=== PATIENT | female | born 1960 | race Caucasian/White ===

== ENCOUNTER 2025-04-16 14:35 | Emergency (ER) | payer OTHER, MEDICAID ==
[~2025-04-16] VITALS: Ht 162.6 cm; Wt 93.8 kg
[2025-04-16 15:19] LABS: Hematocrit 49.1 % (36.0-46.0); Hemoglobin 16.8 g/dL (12.2-16.2); Mean Corpuscular Hemoglobin 30.8 pg (28.0-32.0); Mean Corpuscular Volume 89.9 fL (80.0-100.0); Nucleated Red Blood Cells % 0.0 %
[2025-04-16 15:37] LABS: Alanine Aminotransferase 22 U/L (7-40); Albumin 4.7 g/dL (3.2-4.8); Alkaline Phosphatase 76 U/L (46-116); Anion Gap 9 (5-15); BUN/Creatinine Ratio 12.5 (10.0-20.0); Blood Urea Nitrogen 11 mg/dL (9-23); Calcium 9.8 mg/dL (8.7-10.4); Carbon Dioxide 27 mmol/L (20-31); Potassium 4.7 mmol/L (3.5-5.1); Total Protein 7.1 g/dL (5.7-8.2)
[2025-04-16 15:38] LABS: Bilirubin, Total 0.6 mg/dL (0.2-1.0)
[2025-04-16 15:41] LABS: Chloride 110 mmol/L (98-107); Glucose 117 mg/dL (74-106); Sodium 146 mmol/L (136-145)
--- NOTE | 2025-04-16 15:43 | DVH ---
EXAM: CT HEAD WITHOUT CONTRAST INDICATION: confusion, gen weak TECHNIQUE: CT images of the head were obtained without administration of IV contrast. CT scans at [facility] facility use dose modulation, iterative reconstruction, and/or weight based dosing when appropriate to reduce radiation dose to as low as reasonably achievable. COMPARISON: None FINDINGS: PARENCHYMA: Area of oval shaped hypoattenuation of indeterminate etiology and underlying mass not exc luded. Oval shape measuring up to 3.5 cm. There is no mass effect, midline shift, or herniation. The re is preservation of the stanley white differentiation. VENTRICLES: No hydrocephalus. EXTRA-AXIAL SPACES: No extra-axial fluid collections. OTHER: The bony structures are intact. Visualized portions of the paranasal sinuses and mastoid air cells are clear. IMPRESSION: 1. Area of oval shaped hypoattenuation of indeterminate etiology and underlying mass not excluded. 2. Consider further evaluation with MRI of the brain with and without contrast.
[2025-04-16 17:18] LABS: Urine Protein, UAD TRACE (Negative)
[2025-04-16 17:25] LABS: Amphetamine Screen, Urine Neg (NEGATIVE); Barbiturate Scree,Urine Neg (NEGATIVE); Benzodiazephine Screen, Urine Neg (NEGATIVE); Cannabinoid Screen, Urine Neg (NEGATIVE); Cocaine Screen, Urine Neg (NEGATIVE); Opiate Scree,Urine Neg (NEGATIVE); Phencyclidine Screen, Urine Neg (NEGATIVE)
--- NOTE | 2025-04-16 18:26 | ED.PDOC ---
HPI (NEURO) HPI Comments 64 y.o female with PMHx of malignant melanoma in remission x 11 years, presents to the ED for a chief complaint of confusion and left sided head pain. Patient reports for the past day and a half, woke up feeling abnormal. Patient also mentions vision changes, currently having to focus on a specific thing to focus her vision despite using her prescribed glasses. Additionally, she described a left-sided headache as a pressure sensation that is intermittent. She denies any recent head trauma, nausea, vomiting, focal weakness, fever, chills, dysuria, chest pain or SOB Chief Complaint: Confusion Time Seen by MD: 18:12 Reviewed Notes: Nurses Notes, Medications, Allergies Information Source: Patient Mode of Arrival: Ambulatory Severity: Moderate Headache Severity: Moderate Timing: Days (1.5) Duration: Since onset Headache Quality: Other (pressure ) Headache Location: Parietal Onset: At rest Circumstances: Spontaneous Symptoms: Change of vision History of: Cancer Associated Signs and Symptoms: Headache, Other Past Medical History PAST MEDICAL HISTORY: Cancer (Malignant melanoma) Surgical History: Hysterectomy Surgical History (Other): skin Family History Family History: Reviewed,noncontributory to illness Social History Smoker: Non-Smoker Alcohol: Denies ETOH Use Drugs: Denies Drug Use Lives In: Home Constitutional: denies: chills, diaphoresis, fatigue, fever, malaise, sweats, weakness, others EENTM: denies: blurred vision, double vision, ear bleeding, ear discharge, ear drainage, ear pain, ear ringing, eye pain, eye redness, hearing loss, mouth pain, mouth swelling, nasal discharge, nose bleeding, nose congestion, nose pain, photophobia, tearing, throat pain, throat swelling, voice changes, others Respiratory: denies: cough, hemoptysis, orthopnea, SOB at rest, shortness of breath, SOB with excertion, stridor, wheezing, others Cardiovascular: denies: chest pain, dizzy spells, diaphoresis, Dyspnea on exertion, edema, irregular heart beat, left arm pain, lightheadedness, palpitations, PND, syncope, others Gastrointestinal: denies: abdomen distended, abdominal pain, blood streaked bowels, constipated, diarrhea, dysphagia, difficulty swallowing, hematemesis, melena, nausea, poor appetite, poor fluid intake, rectal bleeding, rectal pain, vomiting, others Genitourinary: denies: abnormal vagina bleeding, burning, dyspareunia, dysuria, flank pain, frequency, hematuria, incontinence, pain, , vagina discharge, urgency, others Neurological: reports: headache, others (confusion ); denies: dizziness, fainting, left sided numbness, left sided weakness, numbness, paresthesia, pre- existing deficit, right sided numbness, right sided weakness, seizure, speech problems, tingling, tremors, weakness Musculoskeletal: reports: others (left arm pain ); denies: back pain, gout, joint pain, joint swelling, muscle pain, muscle stiffness, neck pain Integumetry: denies: bruises, change in color, change in hair/nails, dryness, laceration, lesions, lumps, rash, wounds, others Allergic/Immunocompromised: denies: Difficulty Healing, Frequent Infections, Hives, Itching, others Hematologic/Lymphatic: denies: anemia, blood clots, easy bleeding, easy bruising, swollen glands, others Endocrine: denies: excessive hunger, excessive sweating, excessive thirst, excessive urination, flushing, intolerance to cold, intolerance to heat, unexplained weight gain, unexplained weight loss, others Psychiatric: denies: anxiety, bipolar disorder, depression, hopeless, panic disorder, schizophrenia, sleepless, suicidal, others All Other Systems: Reviewed and Negative Physical Exam General Appearance: No Apparent Distress HEENT: Other (Pupils and face symmetric. Moist mucous membranes.) Neck: Full Range of Motion, Normal Inspection Respiratory: Lungs Clear, No Accessory Muscle Use, No Respiratory Distress, Normal Breath Sounds Cardiovascular: No Edema, No JVD, Regular Rate/Rhythm Breast Exam: Deferred Gastrointestinal: Non Tender, Soft Genitalia: Deferred Pelvic: Deferred Rectal: Deferred Extremities: Normal inspection, Normal range of motion, Non-tender, No pedal edema Neurologic: Alert (Oriented x4), Normal Affect, Normal Mood, Other (Ambulatory without difficulty. No gross focal deficit.) Cerebellar Function: NOT DONE Reflexes: NOT DONE Skin: Dry, Normal Color, Warm Lymphatic: NOT DONE Was a procedure done? Was a procedure done?: No Differential Diagnosis (SZ) Seizure: CVA/TIA General Weakness: Dehydration, Electrolyte imbalance, Hypoglycemia, TIA Headache: Cluster, Migraine, Intracerebral Hemorrhage, Subarachnoid Hemorrhage, Subdural Hemorrhage, Mass Lesion X-Ray, Labs, Meds, VS Vital Signs Date Time Temp Pulse Resp B/P (MAP) Pulse Ox O2 Delivery O2 Flow Rate FiO2 04/16/25 21:02 98.5 98 16 160/76 (104) 96 98.5 04/16/25 18:55 98.9 95 16 174/89 (117) 99 98.9 04/16/25 14:38 98.4 102 16 152/98 94 98.4 Lab Test 04/16/25 16:55 04/16/25 15:02 Range/Units Urine Color Yellow Yellow Urine Clarity Clear Clear Urine pH 5.5 5.0-9.0 Urine Specific [place] 1.027 1.001-1.035 Urine Protein Trace H Negative Urine Ketones 1+ H Negative Urine Blood Trace H Negative /uL Urine Nitrite Negative Negative Urine Bilirubin Negative Negative Urine Urobilinogen Normal Negative mg/dL Urine Leukocyte Esterase 2+ Negative /uL Urine RBC 4 0 - 4 /hpf Urine Microscopic WBC 41 H 0-5 /HPF Urine Squamous Epithelial Cells Few <5 /hpf Urine Bacteria None seen None Seen /hpf Urine Mucus Few None Seen Urine Glucose Normal Normal mg/dL Urine Opiates Screen Neg NEGATIVE Urine Fentanyl Screen Neg NEGATIVE Urine Barbiturates Screen Neg NEGATIVE Urine Phencyclidine Screen Neg NEGATIVE Urine Amphetamines Screen Neg NEGATIVE Urine Benzodiazepines Screen Neg NEGATIVE Urine Cocaine Screen Neg NEGATIVE Urine Cannabinoids Screen Neg NEGATIVE White Blood Count 9.7 4.4-10.8 10^3/uL Red Blood Count 5.46 H 4.0-5.20 10^6/uL Hemoglobin 16.8 H 12.2-16.2 g/dL Hematocrit 49.1 H 36.0-46.0 % Mean Corpuscular Volume 89.9 80.0-100.0 fL Mean Corpuscular Hemoglobin 30.8 28.0-32.0 pg Mean Corpuscular Hemoglobin Concent 34.2 32.0-36.0 g/dL Red Cell Distribution Width 13.5 11.8-14.3 % Platelet Count 320 140-450 10^3/uL Mean Platelet Volume 8.3 6.9-10.8 fL Neutrophils (%) (Auto) 68.1 37.0-80.0 % Lymphocytes (%) (Auto) 26.2 10.0-50.0 % Monocytes (%) (Auto) 4.7 0.0-12.0 % Eosinophils (%) (Auto) 0.2 0.0-7.0 % Basophils (%) (Auto) 0.8 0.0-2.0 % Neutrophils # (Auto) 6.6 1.6-8.6 10 ^3/uL Lymphocytes # (Auto) 2.5 0.4-5.4 10 ^3/uL Monocytes # (Auto) 0.5 0-1.3 10 ^3/uL Eosinophils # (Auto) 0 0-0.8 10 ^3/uL Basophils # (Auto) 0.1 0-0.2 10 ^3/uL Nucleated Red Blood Cells 0.0 % Sodium Level 146 H 136-145 mmol/L Potassium Level 4.7 3.5-5.1 mmol/L Chloride Level 110 H 98-107 mmol/L Carbon Dioxide Level 27 20-31 mmol/L Anion Gap 9 5-15 Blood Urea Nitrogen 11 9-23 mg/dL Creatinine 0.88 0.550-1.02 mg/dL Glomerular Filtration Rate Calc 72 >90 mL/min BUN/Creatinine Ratio 12.5 10.0-20.0 Serum Glucose 117 H 74-106 mg/dL Calcium Level 9.8 8.7-10.4 mg/dL Total Bilirubin 0.6 0.2-1.0 mg/dL Aspartate Amino Transferase (AST) 20 13-40 U/L Alanine Aminotransferase (ALT) 22 7-40 U/L Alkaline Phosphatase 76 46-116 U/L Ammonia < 10 L 11-32 umol/L Total Protein 7.1 5.7-8.2 g/dL Albumin 4.7 3.2-4.8 g/dL Plasma/Serum Blood Alcohol < 3.0 <10 mg/dL PROCEDURE(s): HWOCT - HEAD WITHOUT CONTRAST REASON: confusion, gen weak ORDER NUMBER(s): [id number], ACCESSION NUMBER(s): [id number] EXAM: CT HEAD WITHOUT CONTRAST INDICATION: confusion, gen weak TECHNIQUE: CT images of the head were obtained without administration of IV contrast. CT scans at this facility use dose modulation, iterative reconstruction, and/or weight based dosing when appropriate to reduce radiation dose to as low as reasonably achievable. COMPARISON: None FINDINGS: PARENCHYMA: Area of oval shaped hypoattenuation of indeterminate etiology and underlying mass not excluded. Oval shape measuring up to 3.5 cm. There is no mass effect, midline shift, or herniation. There is preservation of the stanley white differentiation. VENTRICLES: No hydrocephalus. EXTRA-AXIAL SPACES: No extra-axial fluid collections. OTHER: The bony structures are intact. Visualized portions of the paranasal sinuses and mastoid air cells are clear. IMPRESSION: 1. Area of oval shaped hypoattenuation of indeterminate etiology and underlying mass not excluded. 2. Consider further evaluation with MRI of the brain with and without contrast. X-Ray, Labs, Meds, VS Comment 64-year-old female with a history of malignant melanoma in remission complaining of confusion and left-sided pressure-like head discomfort Vitals remarkable for initial heart rate 102, BP 152/98, oxygen saturation 94% on room air Exam unremarkable Rhythm strip independently interpreted by me: Sinus tach, rate 102, no ectopy. CT head remarkable for a left posterior parietal area 3.5 cm oval shaped area of hypoattenuation. Mass can not be excluded. CBC unremarkable, CMP remarkable for sodium 146, chloride 110, ammonia level less than 10, UA abnormal consistent with mild UTI Patient treated with the following in the ED: Tylenol 1 g p.o., Rocephin 1 g IV On re-evaluation, patient is well-appearing. No focal neurologic deficit. Vitals were stable. Case discussed with [facility] hospitalist who declined to accept the patient, stating they do not have Oncology or neurosurgical services, and recommended that I transfer the patient for higher level of care/ neurosurgical services. I briefly discussed the case with our hospitalist, who had the same opinion and recommendation as the [facility] hospitalist. [facility] declined the patient stating they were at capacity. Case discussed with Dr. Turk at [facility] ED, who agreed to accept the patient. I was later advised that the patient's insurance head also initiated transfer to an in-network facility. I discussed the case with Dr. Carty at [facility] who agreed to accept the patient. Time of 1ST Reevaluation: 18:45 Reevaluation 1ST: Unchanged Patient Education/Counseling: Diagnosis, Treatment, Prognosis Family Education/Counseling: No Family Present Departure 1 Departure Time of Disposition: 22:40 Impression: Primary Impression: Brain lesion Additional Impression: UTI (urinary tract infection) Disposition: 02 SHORT TERM HOSPITAL Admit to: Tele Condition: Guarded Critical Care Note Critical Care Time?: No Stability Stability form required: No Heart Score Heart Score: Heart Score Response (Comments) Value History N/A 0 EKG N/A 0 Age N/A 0 Risk Factors N/A 0 Troponin N/A 0 Total 0 I personally scribed for INDIO COYLE MD ([email or web address]) on 04/16/25 at 18:26. Electronically submitted by Fay Calderon ([facility]). INDIO COYLE MD Apr 16, 2025 18:26
[2025-04-17] MEDS: ACETAMINOPHEN 500 MG TAB or CAP PO ONE ×2 (00:43→00:55)
[2025-04-17 00:47] VITALS: O2SAT 98
[2025-04-17 01:50] VITALS: BP 144/76; PULSE 90; RESP 16; TEMP 98; O2SAT 96
== END 2025-04-17 02:11 | disposition short-term general hospital (02) ==
LOC: ER 14:35
DX: G93.9 Disorder of brain, unspecified (principal); N39.0 Urinary tract infection, site not specified; Z85.820 Personal history of malignant melanoma of skin; Z90.710 Acquired absence of both cervix and uterus; Z79.899 Other long term (current) drug therapy
CPT/HCPCS: 36415; 70450; 80053; 80307; 80320; 81001; 82140; 85025; 96365; 99285; J0696